=== PATIENT | male | born 1945 | race Caucasian/White ===

== ENCOUNTER 2023-08-26 09:26 | Outpatient (CLI) | payer MEDICARE, OTHER | END 2023-08-26 09:27 | disposition home or self-care (01) | LOC: SCSRAD 09:26 | PROVIDERS: ATTEND Internal Medicine | DX: M54.2 Cervicalgia (principal); M47.812 Spondylosis without myelopathy or radiculopathy, cervical region | CPT/HCPCS: 72040 ==